=== PATIENT | female | born 1970 | race Caucasian/White ===

== ENCOUNTER 2021-04-10 11:55 | Emergency (ER) | payer OTHER ==
[2021-04-10 12:13] VITALS: BP 146/59; PULSE 64; TEMP 98.6; BMI 31.5
== END 2021-04-10 14:06 | disposition home or self-care (01) ==
LOC: JER 11:55
DX: U07.1 COVID-19 (principal); M54.6 Pain in thoracic spine
CPT/HCPCS: 71046-TC-FY; 99283-25